=== PATIENT | male | born 1955 | race Asian ===

== ENCOUNTER → 2022-10-05 | Outpatient (CLI) | payer MEDICARE | END | disposition home or self-care (01) | LOC: RAH 13:32 | PROVIDERS: ATTEND Orthopaedic Surgery Sports Medicine | DX: M17.11 Unilateral primary osteoarthritis, right knee (principal); M16.11 Unilateral primary osteoarthritis, right hip; G95.89 Other specified diseases of spinal cord; M25.751 Osteophyte, right hip; M25.851 Other specified joint disorders, right hip | CPT/HCPCS: 73700 ==

== ENCOUNTER 2022-10-26 07:12 | Observation (INO) | payer MEDICARE ==
[2022-10-23 11:46] LABS: BASOPHILS % (AUTO) 0.6 % (0.0-5.0); EOSINOPHILS % (AUTO) 3.3 % (0.0-8.0); HEMATOCRIT 42.9 % (42-54); LYMPHOCYTES % (AUTO) 30.3 % (21.0-51.0); MEAN CORPUSCULAR HEMOGLOBIN 28.8 pg (27.0-33.0); MEAN CORPUSCULAR HGB CONC 33.6 g/dL (32.0-36.0); MEAN CORPUSCULAR VOLUME 85.8 fL (79-99); MONOCYTES % (AUTO) 10.2 % (3.0-13.0); NEUTROPHILS % (AUTO) 54.9 % (40.0-77.0); PLATELET COUNT (AUTO) 239 K/uL (130-400); WHITE BLOOD COUNT (AUTO) 8.8 K/uL (4.8-10.8)
[2022-10-23 11:56] LABS: POTASSIUM 4.5 mmol/L (3.5-5.1)
[2022-10-23 12:00] LABS: INR 0.93 (0.85-1.15); PROTHROMBIN TIME 10.2 SEC (9.6-11.6)
[2022-10-23 12:01] LABS: PARTIAL THROMBOPLASTIN TIME 27.5 SEC (26.3-35.5)
[2022-10-23 13:25] VITALS: BP 149/75
[~2022-10-26] VITALS: Ht 162.6 cm; Wt 77.9 kg
[2022-10-26] VITALS (25 sets, daily range): BP systolic 126–186; BP diastolic 63–95
[~2022-10-26 07:12] MED LIST: LISI30TA4 PO; METO100T14 PO; SITA1TAB6 PO
[2022-10-26] MEDS ORDERED: 0.9%NACL 1000ML 1,000 ML IV ONE (07:31)
[2022-10-26 07:34] LABS: APPEARANCE,URINE CLEAR (CLEAR); BILIRUBIN,URINE NEGATIVE (NEGATIVE); COLOR,URINE LIGHT-YELLOW (YELLOW); GLUCOSE, URINE (UA) NEGATIVE (NEGATIVE); KETONES,URINE NEGATIVE (NEGATIVE); LEUKOCYTE ESTERASE ,URINE NEGATIVE Leu/uL (NEGATIVE); NITRATE,URINE NEGATIVE (NEGATIVE); OCCULT BLOOD,URINE NEGATIVE (NEGATIVE); PROTEIN,URINE 10 mg/dL (NEGATIVE); UROBILINOGEN,URINE 0.2 mg/dL (0.2-1.0)
[2022-10-26] MEDS: CEFAZOLIN SODIUM 2 GM VIAL ONE ×2 (07:36→11:01)
[2022-10-26 07:38] LABS: MUCUS,URINE RARE LPF (None Seen); WBC,URINE 0-1 /HPF (0-1)
[2022-10-26] MEDS ORDERED: VANCOMYCIN 1G VIAL ONE (08:50)
[2022-10-26] MEDS ORDERED: PROPOFOL 10 MG/ML 20ML VIAL IV ONE (10:44)
[2022-10-26] MEDS ORDERED: MIDAZOLAM HCL 1 MG/ML 2ML VIAL ONE (10:45)
[2022-10-26] MEDS ORDERED: FENTANYL CITRATE PF 50 MCG/1 ML 2ML VIAL ONE ×2 (10:46→12:20)
[2022-10-26] MEDS ORDERED: TRANEXAMIC ACID 1000MG/10ML ONE (10:52)
[2022-10-26] MEDS ORDERED: EPHEDRINE SULFATE 50 MG/ML AMPULE ONE (11:22)
[2022-10-26] MEDS ORDERED: GLYCOPYRROLATE 1 MG/5 ML SYRINGE ONE (12:17)
[2022-10-26] MEDS ORDERED: ONDANSETRON 4MG INJ ONE (12:17)
[2022-10-26] MEDS ORDERED: NEOSTIGMINE 5MG/5ML SYR IV ONE (12:18)
[2022-10-26] MEDS ORDERED: KETOROLAC 30MG VIAL (30MG/ML) ONE (12:18)
[2022-10-26] MEDS ORDERED: HYDRALAZINE 20MG/ML VIAL ONE (13:30)
[2022-10-26] MEDS ORDERED: HYDROCODONE/ACETAMINOPHEN 5/325 MG TAB PO PRN (13:30)
[2022-10-26] MEDS ORDERED: HYDROCODONE/ACETAMINOPHEN 10/325 MG TAB PO PRN (13:30)
[2022-10-26] MEDS ORDERED: ACETAMINOPHEN 1,000 MG/100 ML VIAL IV SCH (13:30)
[2022-10-26] MEDS ORDERED: KCL 20 MEQ ERTAB PO PRN (13:30)
[2022-10-26] MEDS ORDERED: TRANEXAMIC ACID 1000MG/10ML IV ONE (13:30)
[2022-10-26] MEDS: ACETAMINOPHEN 500 MG TABLET PO SCH ×2 (13:30→19:45)
[2022-10-26] MEDS ORDERED: LIDOCAINE HCL-MPF 1% 2ML VIAL IV PRN (13:30)
[2022-10-26] MEDS: 0.9%NACL 1000ML 1,000 ML IV SCH ×2 (13:30→18:28)
[2022-10-26] MEDS ORDERED: POTASSIUM CHLORIDE 20MEQ/100ML 100 ML IV PRN (13:30)
[2022-10-26] MEDS ORDERED: POTASSIUM CHLORIDE 10% ELIXIR 20 MEQ/15 ML UDCUP PO PRN (13:30)
[2022-10-26] MEDS ORDERED: MORPHINE 4 MG SYG IVP PRN (13:30)
[2022-10-26] MEDS ORDERED: MEPERIDINE-PF 25 MG/ML SYG ONE ×2 (13:35→13:58)
[2022-10-26] MEDS: ONDANSETRON 4MG INJ IVP PRN ×4 (14:00→18:38)
[2022-10-26] MEDS ORDERED: IBUPROFEN 800MG + NS 250ML IV SCH (16:30)
[2022-10-26] MEDS: CEFAZOLIN SODIUM 2 GM VIAL IVPB SCH (18:27)
[2022-10-26] MEDS: TRAMADOL HCL 50 MG TABLET PO SCH (18:28)
[2022-10-26] MEDS: CELECOXIB 200 MG CAP PO SCH (19:44)
[2022-10-26] MEDS: FAMOTIDINE 20MG TAB PO SCH (19:44)
[2022-10-26] MEDS ORDERED: CALDOLOR 800MG+NS 250ML 250 ML IV SCH (20:00)
[2022-10-26] MEDS: CALDOLOR 800MG+NS 250ML 250 ML IV SCH (20:45)
[2022-10-26] MEDS: ASPIRIN 325MG EC TAB PO SCH (20:45)
[2022-10-27 00:14] VITALS: BP 150/76
[2022-10-27] MEDS: TRAMADOL HCL 50 MG TABLET PO SCH ×3 (00:16→11:09)
[2022-10-27] MEDS: CEFAZOLIN SODIUM 2 GM VIAL IVPB SCH (00:59)
[2022-10-27] MEDS: ACETAMINOPHEN 500 MG TABLET PO SCH ×2 (03:24→12:42)
[2022-10-27] MEDS: CALDOLOR 800MG+NS 250ML 250 ML IV SCH ×2 (03:24→12:42)
[2022-10-27 04:15] VITALS: BP 137/74
[2022-10-27 04:31] LABS: HEMATOCRIT 33.5 % (42-54); MEAN CORPUSCULAR HEMOGLOBIN 29.2 pg (27.0-33.0); MEAN CORPUSCULAR HGB CONC 33.1 g/dL (32.0-36.0); MEAN CORPUSCULAR VOLUME 88.2 fL (79-99); RED BLOOD CELL COUNT(AUTO) 3.8 MIL/uL (4.50-6.20); RED CELL DISTRIBUTION WIDTH 13.5 % (11.0-15.5)
[2022-10-27 04:43] LABS: CREATININE 1.1 mg/dL (0.5-1.5); POTASSIUM 3.8 mmol/L (3.5-5.1)
[2022-10-27 07:45] VITALS: BP 118/71
[2022-10-27] MEDS ORDERED: POLYETHYLENE GLYCOL 3350 17 GM POWD.PACK PO SCH (09:00)
[2022-10-27] MEDS: ASPIRIN 325MG EC TAB PO SCH (09:45)
[2022-10-27] MEDS: FAMOTIDINE 20MG TAB PO SCH (09:45)
[2022-10-27] MEDS: CELECOXIB 200 MG CAP PO SCH (09:45)
[2022-10-27 11:00] VITALS: BP 131/63
[2022-10-27] MEDS ORDERED: ASPI-1012 PO (14:30)
[2022-10-29] MEDS ORDERED: BISACODYL 10 MG SUPP.RECT RC PRN (13:30)
== END 2022-10-27 16:20 ==
LOC: DAHIP 07:12 → 4AH 14:36
PROVIDERS: ADMIT Orthopaedic Surgery Sports Medicine; ATTEND Orthopaedic Surgery Sports Medicine
DX: M17.11 Unilateral primary osteoarthritis, right knee (principal); Z20.822 Contact with and (suspected) exposure to COVID-19; I10 Essential (primary) hypertension; E11.9 Type 2 diabetes mellitus without complications; N40.0 Benign prostatic hyperplasia without lower urinary tract symptoms; Z96.653 Presence of artificial knee joint, bilateral; Z79.899 Other long term (current) drug therapy
CPT/HCPCS: 80048 ×2; 85025; 85610; 85730; 87426; 36415 ×2; 93005; 27447; 96376 ×2; 96365; 96366 ×2; 96375 ×2; 82948 ×5; 81001; 73560; 97161; 97530 ×3; 97039 ×2; 85027; 97116 ×2; C1776 ×4; G0378 ×25; A4663; J7030 ×2; J3370; J3010 ×2; J3490 ×4; J2710; J0360; J2250; J2704; J2405 ×2; J1885; J2175 ×2; J1741 ×2; J0690 ×4; A6223; A5120; A4215; A4223; A4222; A4221; J2270